=== PATIENT | female | born 1960 ===

== ENCOUNTER 2017-04-27 08:03 | Inpatient (IN) | payer OTHER ==
[2017-04-25 10:34] VITALS: BMI 23.7
[2017-04-27] MEDS ORDERED: Rocuronium 10 mg/ml (5 ml) ONE ×2 (09:12→13:04)
[2017-04-27] MEDS ORDERED: Lidocaine 2% MPF (5 ml) Inj ONE (09:12)
[2017-04-27] MEDS ORDERED: Propofol 10 mg/ml Inj (20 ML) ONE (09:12)
[2017-04-27] MEDS ORDERED: Midazolam 2 MG/2 ML VIAL ONE (10:39)
[2017-04-27] MEDS ORDERED: Neostigmine Methylsulfate 2 MG/2 ML ML IV ONE ×2 (10:53→13:46)
[2017-04-27] MEDS ORDERED: Lactated Ringer's 1,000 ML IV ONE ×3 (11:00→12:15)
[2017-04-27] MEDS: Bupivacaine 0.5% Inj(30mL) ONE ×3 (11:25→12:00)
[2017-04-27] MEDS ORDERED: Dexamethasone 4 mg/1 ml ONE (12:41)
[2017-04-27] MEDS ORDERED: Naloxone 0.4 mg/ml Inj (Adult) IVP PRN (14:18)
[2017-04-27] MEDS ORDERED: HYDROmorphone 0.5 mg/0.5 ml ISec IVP PRN (14:18)
[2017-04-27] MEDS ORDERED: Oxycodone/Acetaminophen 5/325 mg Tab PO PRN ×2 (14:32→14:51)
[2017-04-27] MEDS ORDERED: Lactated Ringer's 1,000 ML IV SCH ×2 (14:45→14:51)
[2017-04-27] MEDS: BSS 15 ML SOL IR PRN ×4 (15:15→19:56)
[2017-04-27] MEDS: ceFAZolin IV 2 gm in Dextrose 2 GM/50 ML BAG IVPB SCH (18:41)
[2017-04-28] MEDS ORDERED: Phenylephrine 0.25% NASAL Spray (15ML) NAS PRN (00:15)
[2017-04-28] MEDS: BSS 15 ML SOL IR PRN ×2 (00:56→06:54)
[2017-04-28] MEDS: ceFAZolin IV 2 gm in Dextrose 2 GM/50 ML BAG IVPB SCH (02:12)
--- NOTE | 2017-04-28 02:14 | OP ---
PROCEDURE DATE: 04/27/2017 PREOPERATIVE DIAGNOSES: Fibroid uterus, prolapse uterus, and pelvic pain. POSTOPERATIVE DIAGNOSES: Fibroid uterus, prolapse uterus, pelvic pain, and pending pathology. PROCEDURE: Robotic-assisted hysterectomy, bilateral salpingectomy, and cystoscopy. SURGEON: Geno Bryant MD SENIOR PHP SOFTWARE DEVELOPER: Dr. Dickens ANESTHESIOLOGIST: Dr. Morrell TYPE OF ANESTHESIA: General with endotracheal tube. FLUID REPLACEMENT: Lactated Ringer's. DRAINS: Ford to gravity. COMPLICATIONS: None. ESTIMATED BLOOD LOSS: 150 mL. INDICATIONS FOR SURGERY: A 56-year-old with fibroid uterus and uterus prolapse. DESCRIPTION OF PROCEDURE: After informed consent was obtained and signed, the patient was brought to the operating room and placed in supine position. Once general anesthesia was successfully induced, the patient was prepped and draped in usual sterile fashion, placed in supine position and placed in dorsal lithotomy position. After evaluation under anesthesia, bivalve speculum was placed intravaginally. The cervix was grasped with single-toothed tenaculum, tented forward and dilated in graduated fashion. VCare device was then deployed to the cervical canal and insufflated into place. All equipment was removed vaginally. Once VCare was in place and attention turned to the pre-prepped abdominal area in which after Marcaine was infused, the scalpel was then used to make an 8-mm incision horizontally 2 fingerbreadths above the umbilicus. Veress needle was then placed and abdominal cavity was insufflated with ease with CO2 distention medium. Once 50 mm of pressure was obtained, trocar was then placed without difficulty of robotic trocar 8 mm in size, which was confirmed by robotic camera. The camera was used to survey the abdominal cavity and to look at the specimen to be removed. Then, attention turned to the placement of the remaining trocars to the right lateral and on the left under direct visualization. After infusion of Marcaine subcutaneously, two 8 mm incisions were made on the right and two 8 mm incisions were made on the left and trocars were then placed under direct visualization. On the left, she had two arms of the robotic arms and on the right, she had one robotic arm at 1 for an accessory port. Once all the ports were in place, the robot was then docked without difficulty. At this point in time, I then presented to the surgeon's console. At the surgeon's console, I obtained controlled of all instruments. At this time, Dr. Dickens then elevated the uterus for my inspection and I proceeded to use the PK cautery to cauterize the ovarian ligament and tube and round ligament and using the monopolar columba, cauterized and transect on the patient's left side. Once this was completed and the transection was completed, the anterior leaf of the broad ligament was then entered. Using the monopolar columba elevated with the PK and then a plain which used to tunnel, elevate and then transected the anterior leaf of the broad ligament. This was carried down to the vesicular peritoneum, which was then elevated and then bladder flap was created. The bladder flap was then displaced distally using the PK forceps. Attention turned to the patient's right side and then similar fashion using the PK. The tubo-ovarian ligament, the fallopian tube as well as a round ligament were cauterized and then transected with the monopolar robotic arm and the cautery, and cut. Once this was completed, a _ovarian ligament the fallopian tube and round ligaments were transected then performed and skeletonization of the peritoneum followed by dissecting off the anterior leaf of the broad ligament meeting in the midline, the contralateral side, and then displaced from the bladder flap distally. Once this was achieved, monopolar columba was used to then create a thin layer of peritoneum which was further to remove the excess bladder off of the cervix. Once clear plane was seen, the cuff line was noted of the VCare anteriorly. Attention turned to the posterior peritoneum, which was then scored. The peritoneum was then displaced distally and I proceeded to use the monopolar columba to evaluate the cuff line. The cuff was then identified of the VCare and using the monopolar columba. A circumferential incision was used to excise the cervix away from the vaginal cuff. At this point in time, attention turned to be utilized laterally, which were cauterized using the PK, cauterization of both sides and then transected. Once this was completed, then we proceeded with circumferentially excising the entire uterus. Once this was completely from the vaginal cuff, Dr. Dickens then removed the uterus vaginally. At this point in time, a moist laparotomy pad was placed vaginally to maintain pneumoperitoneum. Dr. Dickens then at this point in time replaced monopolar columba and introduced a 12-inch V-Loc suture. Dr. Dickens then as well introduced Albino SutureCut and then return control back over to the surgeon console. After copious irrigation and suctioned by Dr. Dickens and retraction of the bowel, attention turned to the vaginal cuff closure. Please note, prior to Dr. Dickens when he extracted the uterus, I also transected remaining part of fallopian tube and ended it to be exudate vaginally with the rest of the specimen. Once all of the pathology was removed and Dr. Dickens copiously irrigated, then attention turned to the vaginal cuff, which was closed using the V-Loc suture with robotic Albino SutureCut. Once this was completed, the cuff was closed. The remaining suture of the V-Loc suture was transected and Dr. Dickens removed the Albino SutureCut and then introduced a needle stockton and extracted the needle with the remaining suture. At this point in time, Dr. Dickens copiously irrigated again. Good hemostasis was noted well. At this point in time, he removed all equipment and undocked the robot. I proceeded with re-scrubbing and performing the cystoscopy at this point in time. The Ford catheter was removed and moist laparotomy, sponge was removed and attention turned to urethral meatus where the pre-lubricated scope was placed with ease. The bladder was then insufflating with normal saline distention medium. Once approximately 250 mL was introduced, the flow was discontinued and the bladder was evaluated and scanned. No signs of injury. No signs of suture. Attention did note efflux of urine at both urethral orifices. Once both were identified, the scope was removed, the Ford was replaced and insufflated and we proceeded to close the trocar incisions using Monocryl of 4-0 needle, subcuticular stitch followed by Dermabond and glue. The patient tolerated the procedure well. All sponge, needle, and equipment count were correct x3 and the patient went to recovery room in stable condition. Geno Bryant MD MERE
[2017-04-28 06:44] LABS: PARTIAL THROMBOPLASTIN TIME 29.1 Seconds (25.6-37.1); PROTHROMBIN TIME 11.5 Seconds (9.8-13.1)
[2017-04-28 06:46] LABS: BASO % 0.3 % (0.0-2.0); HEMOGLOBIN 12.7 g/dL (12.0-16.0); LYMPH # 1.1 K/uL (1.0-4.3); LYMPH % 9.9 % (20.0-40.0); MEAN CELL VOLUME 88.2 fl (81.0-99.0); MEAN CORPUSCULAR HEMOGLOBIN 28.9 pg (27.0-31.0); MEAN CORPUSCULAR HGB CONC 32.7 g/dL (33.0-37.0); MEAN PLATELET VOLUME 9.7 fl (7.2-11.7); MONO # 0.9 K/uL (0.0-0.8); MONO % 8.1 % (0.0-10.0); NEUT # 9.5 K/uL (1.8-7.0); NEUT % 81.7 % (50.0-75.0); NRBC % 0.1 % (0.0-0.0); PLATELET COUNT 228 K/uL (130-400); RED CELL DISTRIBUTION WIDTH 13.7 % (11.5-14.5); WHITE BLOOD COUNT 11.6 K/uL (4.8-10.8)
[2017-04-28 06:57] LABS: ALB/GLOB RATIO 1.2 (1.0-2.1); ALBUMIN 3.7 g/dL (3.5-5.0); ALT/SGPT 37 U/L (9-52); AST/SGOT 33 U/L (14-36); BLOOD UREA NITROGEN 10 mg/dl (7-17); CALCIUM 9.1 mg/dL (8.4-10.2); GFR AFRICAN-AMERICAN > 60; GFR NON-AFRICAN AMERICAN > 60
[2017-04-28 08:44] VITALS: BP 134/76
[2017-04-28 12:04] LABS: BANDS 3 % (0-2); LYMPHOCYTE 14 % (20-50); MONOCYTE 7 % (0-10); NEUTROPHIL 76 % (42-75); PLATELET ESTIMATE NORMAL (NORMAL); TOTAL CELLS COUNTED 100
[2017-04-28 12:18] LABS: ANISOCYTOSIS SLIGHT
[2017-04-28 12:46] VITALS: PULSE 95; RESP 16; TEMP 99.1; O2SAT 100
[2017-04-28] MEDS ORDERED: Dexamethasone/Tobramycin Ophth Susp OD SCH (13:00)
--- NOTE | 2017-04-28 14:47 | CP.PCM.PN ---
Subjective - Date & Time of Evaluation Date of Evaluation: 04/28/17 Time of Evaluation: 14:30 - Subjective Subjective: Patient c/o incisional pain minor and right eye irritation Objective - Vital Signs/Intake and Output Vital Signs (last 24 hours): Temp Pulse Resp BP Pulse Ox 99.1 F 95 H 16 134/76 100 04/28/17 12:45 04/28/17 12:45 04/28/17 12:45 04/28/17 08:41 04/28/17 12:45 Intake and Output: 04/28/17 04/28/17 06:59 18:59 Intake Total 380 Output Total 300 550 Balance 80 -550 - Medications Medications: Current Medications Erythromycin (Erythromycin) 1 applic OD TID MAME Lactated Ringer's (Lactated Ringer's) 1,000 mls @ 100 mls/hr IV .Q10H MAME Last Admin: 04/28/17 01:34 Dose: 100 mls/hr Naloxone HCl (Narcan) 0.1 mg IVP Q2M PRN PRN Reason: Shortness of Breath Oxycodone/Acetaminophen (Percocet 5/325 Mg Tab) 1 tab PO Q4 PRN PRN Reason: Pain, moderate (4-7) Stop: 04/30/17 14:33 Phenylephrine HCl (Beck-Synephrine 0.25% Nasal Murphy) 1 spry FELECIA Q4 PRN PRN Reason: Nasal congestion Last Admin: 04/28/17 00:55 Dose: 1 spr Ringer's Solution (Bss 15 Ml) 15 ml IR PRN PRN PRN Reason: Itching / Pruritus Last Admin: 04/28/17 06:54 Dose: 15 ml - Labs Labs: 04/28/17 04:50 04/28/17 04:50 PT 11.5 Seconds (9.8-13.1) 04/28/17 04:50 INR 1.0 (0.9-1.2) 04/28/17 04:50 APTT 29.1 Seconds (25.6-37.1) 04/28/17 04:50 - Constitutional Appears: Well - Eye Exam Eye Exam: Conjunctival injection, Periorbital swelling (erythema of the right eye no swelling or restricted movement) - Neck Exam Neck Exam: Normal Inspection - Respiratory Exam Respiratory Exam: NORMAL BREATHING PATTERN - GI/Abdominal Exam GI & Abdominal Exam: Soft, Normal Bowel Sounds (incision intact ) - Exam External exam: NORMAL EXTERNAL EXAM - Extremities Exam Extremities Exam: Normal Inspection - Neurological Exam Neurological Exam: Alert, Normal Gait - Skin Skin Exam: Normal Color, Warm Assessment and Plan - Assessment and Plan (Free Text) Assessment: s/p Robotic Assisted hysterectomy bilateral salpingectomy P. D/C to home f/u in [address] Bryant pelvic rest 6 weeks pain management PRN perocet and motrin
[2017-04-28] MEDS ORDERED: Erythromycin 0.5% Ophth Oint 1 APPLIC/3.5 G OD SCH (17:00)
== END 2017-04-28 16:08 | disposition home or self-care (01) | DRG 743 ==
LOC: H.OPSURG 08:03 → H.PEDS 14:32
PROVIDERS: ADMIT Specialist; ATTEND Specialist
PROC: 0UT7FZZ Resection of Bilateral Fallopian Tubes, Via Natural or Artificial Opening With Percutaneous Endoscopic Assistance (ICD-10-PCS; 2017-04-27)
PROC: 8E0W4CZ Robotic Assisted Procedure of Trunk Region, Percutaneous Endoscopic Approach (ICD-10-PCS; 2017-04-27)
PROC: 0TJB8ZZ Inspection of Bladder, Via Natural or Artificial Opening Endoscopic (ICD-10-PCS; principal; 2017-04-27 10:45)
PROC: 0UT9FZZ Resection of Uterus, Via Natural or Artificial Opening With Percutaneous Endoscopic Assistance (ICD-10-PCS; 2017-04-27 10:45)
DX: D25.9 Leiomyoma of uterus, unspecified (principal); N81.4 Uterovaginal prolapse, unspecified